=== PATIENT | male | born 1970 | race Caucasian/White ===

== ENCOUNTER 2018-09-21 20:19 | Emergency (ER) | payer MEDICARE ==
[2018-09-21] MEDS ORDERED: KETOROLAC TROMETHAMINE 30 MG/ML SOL IM ONE (21:31)
[2018-09-21] MEDS ORDERED: KETOROLAC TROMETHAMINE 30 MG/ML SOL ONE (21:40)
[2018-09-22 01:31] VITALS: BP 154/89; PULSE 81; RESP 20; TEMP 97.9; O2SAT 98
== END 2018-09-21 21:53 | disposition home or self-care (01) | DRG 563 ==
LOC: ED 20:19
DX: S83.92XA Sprain of unspecified site of left knee, initial encounter (principal); Y93.39 Activity, other involving climbing, rappelling and jumping off; M25.562 Pain in left knee
CPT/HCPCS: 73560; 96372; 99282; 99283; J1885